=== PATIENT | female | born 1990 | race Caucasian/White ===

== ENCOUNTER → 2025-08-15 | Outpatient (CLI) | payer OTHER ==
[~2025-08-15] MED LIST: GADOTERATE MEGLUMINE 7.5 MMOL/15 ML VIAL IV ONE
== END | disposition home or self-care (01) ==
LOC: MRI 09:00
PROVIDERS: ATTEND Orthopaedic Surgery
DX: M67.462 Ganglion, left knee (principal); M25.562 Pain in left knee; D17.79 Benign lipomatous neoplasm of other sites

== ENCOUNTER → 2025-08-19 | Outpatient (CLI) | payer OTHER ==
[~2025-08-19] MED LIST changes: -GADOTERATE MEGLUMINE 7.5 MMOL/15 ML VIAL IV ONE; +Technetium Tc 99M Medronate 1 KIT KIT IV SCH; +Technetium Tc 99M Tetrofosmi 0.23 MG KIT IJ SCH
== END | disposition home or self-care (01) ==
LOC: NM 01:46
PROVIDERS: ATTEND Orthopaedic Surgery
DX: M89.8X9 Other specified disorders of bone, unspecified site (principal); R10.2 Pelvic and perineal pain; M54.50 Low back pain, unspecified; M25.562 Pain in left knee; M79.659 Pain in unspecified thigh